=== PATIENT | male | born 1980 | race Caucasian/White ===

== ENCOUNTER → 2018-03-13 14:21 | Outpatient (CLI) | payer OTHER, SELFPAY ==
[2018-03-17 15:26] LABS: Volume Semen 5 (1.0-5.0)
[2018-03-17 15:32] LABS: Liquefaction Semen NO (YES)
[2018-03-17 15:33] LABS: Sperm Count 200 x10^6/mL (20-150); Sperm Motility 40% % Motile
[2018-03-17 15:35] LABS: Sperm Morphology 40 %ABNORM (0-30)
== END ==
PROVIDERS: PCP Family Medicine; Visit Provider Family Medicine
DX: Z31.41 Encounter for fertility testing (principal)
CPT/HCPCS: 89320

== ENCOUNTER → 2020-05-19 14:12 | Outpatient (CLI) | payer OTHER, SELFPAY ==
[2020-05-21 18:39] LABS: COVID19 Sendout Not Detected (Not Detected)
== END ==
PROVIDERS: PCP Family Medicine; Visit Provider Physician Assistant
DX: Z11.59 Encounter for screening for other viral diseases (principal)
CPT/HCPCS: 87635

== ENCOUNTER → 2022-02-21 12:01 | Outpatient (CLI) | payer OTHER, SELFPAY ==
--- NOTE | 2022-02-21 12:02 | DI.RAD.S_ITS ---
PROCEDURE: XR CHEST 2V INDICATIONS: Wheezing, cough, fatigue TECHNIQUE: 2 views of the chest were acquired. COMPARISON: None. FINDINGS: Surgical changes and devices: None. Lungs and pleura: Lungs are clear. No pleural effusions or pneumothorax. Mediastinum: Mediastinal contours are normal. Enlargement of the cardiac silhouette. Bones and chest wall: No suspicious bony abnormalities. Eventration of the right diaphragm. IMPRESSION: Cardiomegaly. Dictated by: Michael Regan M.D. on 02/21/2022 at 12:31 Approved by: Michael Regan M.D. on 02/21/2022 at 12:32
== END ==
PROVIDERS: PCP Family Medicine; Referring Provider Family Medicine; Visit Provider Physician Assistant
DX: I51.7 Cardiomegaly (principal); R05.9 Cough, unspecified; R06.2 Wheezing; R53.83 Other fatigue
CPT/HCPCS: 71046

== ENCOUNTER → 2022-02-22 10:57 | Outpatient (CLI) | payer OTHER, SELFPAY ==
[2022-02-22 11:25] LABS: Add Manual Diff / Slide Review NO; Basophils Absolute Auto 0 /uL (0-100); Basophils Percent Auto 0.7 % (0-2); Eosinophils Absolute Auto 200 /uL (0-450); Eosinophils Percent Auto 3.6 % (2-4); Hematocrit 41.7 % (41-53); Hemoglobin 14.5 g/dL (13.5-17.5); Lymphocytes Absolute Auto 1900 /uL (1100-4500); Lymphocytes Percent Auto 30.1 % (25-40); Mean Corpuscular HGB Conc 34.8 % (30-36); Mean Corpuscular Volume 86.3 fL (80-100); Monocytes Absolute Auto 400 /uL (0-900); Monocytes Percent Auto 6.9 % (3-14); Neutrophils Absolute Auto 3700 /uL (1500-7000); Neutrophils Percent Auto 58.7 % (50-75); Platelet Count 218 X10^3/uL (150-400); Red Blood Cell Count 4.84 X10^6/uL (4.5-5.9); Red Cell Distribution Width 13.2 % (11.6-14.8); White Blood Cell Count 6.4 X10^3/uL (4.5-11.0)
[2022-02-22 12:53] LABS: HEMOLYSIS < 15 (0-50); Iron 129 ug/dL (49-181)
[2022-02-22 12:58] LABS: Alanine Aminotransferase 84 IU/L (<50); Albumin 4.4 g/dL (3.5-5.0); Albumin Globulin Ratio 1.4 (1.0-2.8); Alkaline Phosphatase 123 U/L (38-126); Aspartate Aminotransferase 42 IU/L (17-59); BUN Creatinine Ratio 18.7 (6-22); Bilirubin Total 0.9 mg/dL (0.2-1.3); Blood Urea Nitrogen 14 mg/dL (9-20); Calcium 9.6 mg/dL (8.4-10.2); Carbon Dioxide 28 mmol/L (22-32); Chloride 102 mmol/L (98-107); Cholesterol 179 mg/dL (140-199); Estimated Glomerular Filt Rate > 60 mL/min (>60); Globulin 3.1 g/dL (1.7-4.1); Glucose 113 mg/dL (70-100); HDL Cholesterol 43 mg/dL (40-60); HEMOLYSIS < 15 (0-50); LDL Cholesterol Calculated 61 mg/dL (<100); Potassium 4.2 mmol/L (3.4-5.1); Sodium 137 mmol/L (137-145); Total Protein 7.5 g/dL (6.3-8.2); Triglycerides 374 mg/dL (35-150)
[2022-02-22 13:03] LABS: Percent Iron Saturation 40 % (20-50); Total Iron Binding Capacity 326 ug/dL (261-462); Transferrin 247 mg/dL (206-381)
[2022-02-22 13:23] LABS: TSH w/ Reflex to FT4 1.49 uIU/mL (0.47-4.68)
== END ==
PROVIDERS: PCP Family Medicine; Referring Provider Physician Assistant; Visit Provider Physician Assistant
DX: R53.83 Other fatigue (principal); Z13.220 Encounter for screening for lipoid disorders; Z13.6 Encounter for screening for cardiovascular disorders
CPT/HCPCS: 36415; 80053; 80061; 83540; 83550; 84443; 85025

== ENCOUNTER 2022-03-14 09:11 | Emergency (ER) | payer OTHER, SELFPAY ==
[2022-03-14 09:13] VITALS: BP 142/93; PULSE 99; RESP 15; TEMP 36.8; O2SAT 98; BMI 41.2
--- NOTE | 2022-03-14 09:19 | DI.RAD.S_ITS ---
PROCEDURE: XR RIBS RT MIN 3V W CXR 1V INDICATIONS: rib pain TECHNIQUE: To views of the right ribs were acquired, along with a single view chest. COMPARISON: [facility], , XR CHEST 2V, 02/21/2022, 12:07. FINDINGS: Surgical changes and devices: None. Bones and chest wall: No fractures or dislocations. No suspicious bony lesions. Overlying soft tissues appear unremarkable. Lungs and pleura: No pleural effusions or pneumothorax. Lungs appear clear. Mediastinum: Mediastinal contours appear normal. Heart size is normal. IMPRESSION: No displaced rib fracture. No acute cardiopulmonary disease process. Dictated by: Divine Rider MD, PhD on 03/14/2022 at 9:41 Approved by: Divine Rider MD, PhD on 03/14/2022 at 9:42
--- NOTE | 2022-03-14 09:56 | PC.NURSE ---
Patient reports increase in allergies over the last month or two. Has been seeing PCP for sinus congestion. Patient reports right rib pain and tenderness to RUQ. Patient has no bruising, trauma. Patient has old healed scar from skin graft.
--- NOTE | 2022-03-14 12:10 | ED_ITS ---
HPI - Chest Pain <Soren Bennett PA-C - Last Filed: 03/14/22 12:21> General Chief Complaint: Upper Respiratory Symptoms Stated Complaint: Having lower right rib pain Time Seen by Provider: 03/14/22 11:57 Source: patient Mode of arrival: Ambulatory Limitations: no limitations History of Present Illness HPI narrative: This is a 42-year-old male presents to the emergency department due to 1 month of right rib pain which she suspects is due to excessive coughing and sneezing secondary to allergies. Reports severe right rib pain with ibuprofen providing minimal relief. Denies any shortness of breath, fevers, nausea, vomiting, or any other concerning signs or symptoms. Denies any left arm pain. Related Data Home Medications Medication Instructions Recorded Confirmed cetirizine 10 mg tablet (Zyrtec) 10 mg PO BEDTIME PRN tab 02/21/22 03/04/22 guaifenesin 600 mg tablet, 600 mg PO BID 02/21/22 03/04/22 extended release 12 hr (Mucinex) loratadine 10 mg tablet (Claritin) 10 mg PO .A.M. tab 02/21/22 03/04/22 Previous Rx's Medication Instructions Recorded azelastine 137 mcg (0.1 %) nasal 1 spray INTRANASAL BID #30 ml 02/16/22 spray aerosol Allergies Allergy/AdvReac Type Severity Reaction Status Date / Time No Known Drug Allergies Allergy Verified 03/14/22 09:19 Review of Systems <Soren Bennett PA-C - Last Filed: 03/14/22 12:21> Review of Systems Narrative: GENERAL: Denies chills, fatigue, malaise, fever, sweats. HEENT: Denies sinus pain, ear pain, sore throat, difficulty swallowing, dizziness. RESPIRATORY: Denies dyspnea, cough, wheezing, hemoptysis, sputum. CARDIOVASCULAR: Reports right rib pain. Denies palpitations, orthopnea, edema, GASTROINTESTINAL: Denies nausea, vomiting, abdominal pain, diarrhea, constipation, melena. : Denies dysuria, frequency, incontinence, hematuria, urinary retention. MUSCULOSKELETAL: denies weakness, joint pain, or bony pain SKIN: Denies rash, skin lesions, or other NEUROLOGIC: Denies weakness, headache, numbness, change in speech, confusion, seizures, incoordination. PSYCHIATRIC: No concerning psychosocial issues. 12 point review of systems is negative except for those stated above Patient History <Soren Bennett PA-C - Last Filed: 03/14/22 12:21> Medical History Anxiety Microtia Family History Mother Diabetes mellitus Father Hypertension Social History marital status: number of children: 0 household members: spouse lives independently: Yes caregiver/support person: No housing: house occupational status: employed Smoking Status: Never smoker second hand exposure: Yes alcohol intake: current substance use type: does not use Smoking Status: Never smoker alcohol intake frequency: holidays/special occasions only Substance Use Type: does not use Exam <Soren Bennett PA-C - Last Filed: 03/14/22 12:21> Narrative Exam Narrative: GENERAL: Well-developed patient, in mild distress. HEAD: Atraumatic. Normocephalic. EYES: Pupils equal round and reactive. Extraocular motions intact. No scleral icterus. No injection or drainage. ENT: Nose without bleeding, purulent drainage. Throat without erythema, tonsillar hypertrophy or exudate. Airway patent. NECK: Trachea midline. Non tender CARDIOVASCULAR: Tenderness to palpation to the right anterior rib approximately rib number 8. Regular rate and rhythm without murmurs, gallops, or rubs. RESPIRATORY: Clear to auscultation. Breath sounds equal bilaterally. No wheezes, rales, or rhonchi. GASTROINTESTINAL: Abdomen soft, non-tender, nondistended. EXTREMITIES: No edema or joint tenderness. BACK: Nontender without deformity or crepitance. No flank tenderness. NEURO: AOx3. SKIN: No rash or erythema of visible areas Initial Vital Signs Initial Vital Signs: Vital Signs Temperature 98.3 F 03/14/22 09:13 Pulse Rate 99 H 03/14/22 09:13 Respiratory Rate 15 03/14/22 09:13 Blood Pressure 142/93 H 03/14/22 09:13 Pulse Oximetry 98 03/14/22 09:13 <Meg Jane DO - Last Filed: 03/14/22 20:14> Initial Vital Signs Initial Vital Signs: Vital Signs Temperature 98.3 F 03/14/22 09:13 Pulse Rate 99 H 03/14/22 09:13 Respiratory Rate 15 03/14/22 09:13 Blood Pressure 142/93 H 03/14/22 09:13 Pulse Oximetry 98 03/14/22 09:13 Course <Soren Bennett PA-C - Last Filed: 03/14/22 12:21> Orders Ordered: Discontinued Medications Ketorolac Tromethamine (Ketorolac 30 Mg/Ml Vial) 15 mg IM NOW ONE Stop: 03/14/22 12:14 Last Admin: 03/14/22 12:29 Dose: 15 mg Documented by: ATAYLOR Vital Signs Vital signs: Vital Signs - 8 hr 03/14/22 12:38 Pulse Rate 94 H Respiratory Rate 18 Blood Pressure 153/85 H Pulse Oximetry 98 <Meg Jane DO - Last Filed: 03/14/22 20:14> Orders Ordered: Discontinued Medications Ketorolac Tromethamine (Ketorolac 30 Mg/Ml Vial) 15 mg IM NOW ONE Stop: 03/14/22 12:14 Last Admin: 03/14/22 12:29 Dose: 15 mg Documented by: ATAYLOR Vital Signs Vital signs: Vital Signs - 8 hr 03/14/22 12:38 Pulse Rate 94 H Respiratory Rate 18 Blood Pressure 153/85 H Pulse Oximetry 98 MDM - Chest Pain <Soren Bennett PA-C - Last Filed: 03/14/22 12:21> Imaging Data Chest x-ray: Radiologist's Impression: [address] [address] XRay Report Signed Patient: Michael Monzon MR#: [id number] : 1980 Acct:[id number] Age/Sex: 42 / M Date of Service: 03/14/22 Loc: ED Accession Number: [id number] ?? Procedure: XR ribs RT min 3V w CXR1V Ordering Provider: Meg Jane D.O. PROCEDURE:? XR RIBS RT MIN 3V W CXR 1V ? INDICATIONS:? rib pain ? TECHNIQUE:? To views of the right ribs were acquired, along with a single view chest.? ? COMPARISON:? [facility], CR, XR CHEST 2V, 02/21/2022, 12:07. ? FINDINGS:? ? Surgical changes and devices:? None.? ? Bones and chest wall:? No fractures or dislocations.? No suspicious bony lesions.? Overlying soft tissues appear unremarkable.? ? Lungs and pleura:? No pleural effusions or pneumothorax.? Lungs appear clear.? ? Mediastinum:? Mediastinal contours appear normal.? Heart size is normal.? ? IMPRESSION:? No displaced rib fracture. No acute cardiopulmonary disease process. ? ? Dictated by: Divine Rider MD, PhD on 03/14/2022 at 9:41 ? ? Approved by: Divine Rider MD, PhD on 03/14/2022 at 9:42 ? MDM Narrative Medical decision making narrative: 42-year-old male presents to the emergency department due to acute onset right rib pain. Patient was very tender on palpation concerning for possible rib fracture. X-rays ordered which stated ?no displaced? rib fracture. Will treat for possibly nondisplaced rib fracture on the right with conservative measures. Patient denies for any nausea, left arm pain, heavy pressure-like chest pain concerning for ACS. Patient did report a concerning history consistent with a possible rib fracture. Chest x-ray showed no other abnormal lung findings. Discharge Plan Departure Patient Disposition: Home Clinical Impression: Pain in rib Instructions: DI for Rib Fracture, DI for Rib Contusion Activity Restrictions/Additional Instructions: Thank you for coming to the [facility] Emergency Department today. There were no obvious rib fractures on chest x-ray but we would still like you to be careful with any physical activity until your rib has time to heal. Please use ibuprofen as recommended for the pain. The injection given to you of Toradol should help with the pain as well. Chest x-ray did not show any other abnormal lung injury. I suspect you have either had a very small fracture or pulled a muscle in your rib area due to the excessive sneezing and coughing from allergies. I hope you feel better soon. Prescriptions: No Action azelastine 137 mcg (0.1 %) aerosol,spray 1 spray intranasal BID Qty: 30 1RF Rx Instructions: administer into each nostril loratadine [Claritin] 10 mg tablet 10 mg PO .A.M. 0RF cetirizine [Zyrtec] 10 mg tablet 10 mg PO BEDTIME PRN0RF guaifenesin [Mucinex] 600 mg tablet extended release 12hr 600 mg PO BID 0RF Referrals: Brianda Cleveland MD [Primary Care Provider] - Stand Alone Forms: Work Release Note Visit Report Forms: Patient Portal/API <Meg Jane DO - Last Filed: 03/14/22 20:14> Cosign ED Attending Sudeepature Attestation: I was immediately available in the department for consultation. Documentation has been reviewed.
[2022-03-14] MEDS: KETOROLAC 30 MG/ML VIAL 15 MG IM (12:29)
[2022-03-14 12:38] VITALS: BP 153/85; PULSE 94; RESP 18; O2SAT 98
== END 2022-03-14 12:41 | disposition home or self-care (01) ==
PROVIDERS: Emergency Provider Physician Assistant Medical; PCP Family Medicine
DX: R07.81 Pleurodynia (principal)
CPT/HCPCS: 71101; 96372; 99283; J1885

== ENCOUNTER 2022-06-17 14:22 | Emergency (ER) | payer OTHER, SELFPAY ==
[2022-06-17 14:39] VITALS: BP 138/78; PULSE 78; RESP 20; TEMP 36.6; O2SAT 99
--- NOTE | 2022-06-17 14:49 | ED_ITS ---
HPI - URI/Sore Throat General Chief Complaint: Upper Respiratory Symptoms Stated Complaint: peritonsillar abscess worried about swallowing it Time Seen by Provider: 06/17/22 14:41 Source: patient Mode of arrival: Ambulatory History of Present Illness HPI Narrative: Michael is a 42-year-old man with throat infection. He was seen earlier today in the walk-in clinic for swelling in his throat and was diagnosed with peritonsillar abscess and told to return to the emergency department if the swelling is getting worse. He came in today because he feels that the swelling is worse and he is gagging on his uvula. No vomiting. He can swallow. His airway is not compromised. Denies any other problems today. Related Data Home Medications Medication Instructions Recorded Confirmed cetirizine 10 mg tablet (Zyrtec) 10 mg PO BEDTIME PRN 02/21/22 05/28/22 ibuprofen 200 mg tablet 400 mg PO Q4H 03/21/22 05/28/22 omeprazole 20 mg capsule,delayed 20 mg PO DAILY 05/28/22 05/28/22 release Previous Rx's Medication Instructions Recorded lisinopril 10 mg tablet 10 mg PO DAILY #60 tabs 04/24/22 Dexamethasone 4 mg PO DAILY 3 days 06/17/22 Allergies Allergy/AdvReac Type Severity Reaction Status Date / Time No Known Drug Allergies Allergy Verified 05/28/22 11:34 Review of Systems Review of Systems Narrative: Complete review of systems is otherwise negative. Patient History Medical History (Updated 06/17/22 @ 14:49 by Jorge L Paul MD) Anxiety Microtia Obstructive sleep apnea (adult) (pediatric) Family History Mother Diabetes mellitus Father Hypertension Social History marital status: number of children: 0 household members: spouse lives independently: Yes caregiver/support person: No housing: house occupational status: employed Smoking Status: Never smoker second hand exposure: Yes alcohol intake: current substance use type: does not use Smoking Status: Never smoker alcohol intake frequency: holidays/special occasions only Substance Use Type: does not use Exam Narrative Exam Narrative: GENERAL: Alert, cooperative and in no distress. HEAD: Atraumatic. Normocephalic. EYES: Sclera are clear without icterus. Extraocular movements are full. ENT: No rhinorrhea. Oropharynx is moist. Mouth exam is benign. Uvula is swollen. The posterior pharynx is widely patent. The tonsillar pillars are erythematous with a little bit of exudate. There is no midline shift of the uvula. There is no obvious abscess. NECK: Supple. Full range of motion. No adenopathy EXTREMITIES: No edema, full range of motion. No obvious trauma. NEURO: Nonfocal examination, normal speech, normal gait. SKIN: No rash or erythema of visible areas PSYCH: Normally oriented. Normal range of affect. Appropriate behavior Initial Vital Signs Initial Vital Signs: Vital Signs Temperature 97.9 F 06/17/22 14:39 Pulse Rate 78 06/17/22 14:39 Respiratory Rate 20 06/17/22 14:39 Blood Pressure 138/78 06/17/22 14:39 Pulse Oximetry 99 06/17/22 14:39 Oxygen Delivery Method 06/17/22 14:39 Course Vital Signs Vital signs: Vital Signs - 8 hr 06/17/22 14:39 Temperature 97.9 F Pulse Rate 78 Respiratory Rate 20 Blood Pressure 138/78 Pulse Oximetry 99 Oxygen Delivery Method Room Air MDM - URI/Sore Throat MDM Narrative Medical decision making narrative: Patient seems frustrated by the fact that he continues to have gagging with a swollen uvula. I tried to reassure him as best I could that no immediately dangerous condition is present and that the swelling will resolve with the dexamethasone over the next 1 or 2 days. There is no overt peritonsillar abscess to my eye as diagnosed earlier today. I think continuing dexamethasone and Augmentin should certainly be sufficient for any bacterial component or any significant swelling. Discharge Plan Departure Patient Disposition: Home Clinical Impression: Pharyngitis, Uvulitis Activity Restrictions/Additional Instructions: Take all of the medications previously prescribed including the Augmentin antibiotic. Take 4 mg dexamethasone daily for the next 3 days. These medicines will help decrease the swelling as fast as anything. There is nothing really to be done about the gagging sensation you have because the uvula is swollen. The swelling should decrease dramatically over the coming 24-48 hours. If you can not swallow or have trouble breathing, you should return to the emergency dep artment. Prescriptions: New Dexamethasone 4 mg tablet 4 mg PO DAILY 3 Days 0RF No Action cetirizine [Zyrtec] 10 mg tablet 10 mg PO BEDTIME PRN omeprazole 20 mg capsule,delayed release(DR/EC) 20 mg PO DAILY lisinopril 10 mg tablet 10 mg PO DAILY Qty: 60 1RF ibuprofen 200 mg tablet 400 mg PO Q4H Referrals: Brianda Cleveland MD [Primary Care Provider] -
== END 2022-06-17 14:54 | disposition home or self-care (01) ==
PROVIDERS: Emergency Provider Family Medicine Addiction Medicine; PCP Family Medicine
DX: K12.2 Cellulitis and abscess of mouth (principal); J02.9 Acute pharyngitis, unspecified
CPT/HCPCS: 99281

== ENCOUNTER → 2022-07-03 15:45 | Outpatient (CLI) | payer OTHER, SELFPAY ==
[2022-07-03 16:38] LABS: Hemoglobin A1C% w Est Avg Glu 8.4 % (4.0-6.0)
== END ==
PROVIDERS: PCP Family Medicine; Referring Provider Physician Assistant; Visit Provider Physician Assistant
DX: E78.1 Pure hyperglyceridemia (principal); R35.0 Frequency of micturition; R35.1 Nocturia; R73.01 Impaired fasting glucose
CPT/HCPCS: 36415; 83036

== ENCOUNTER → 2022-08-10 11:47 | Outpatient (CLI) | payer OTHER, SELFPAY ==
[2022-08-10 13:47] LABS: BUN Creatinine Ratio 13.2 (6-22); Blood Urea Nitrogen 9 mg/dL (9-20); Calcium 8.8 mg/dL (8.4-10.2); Carbon Dioxide 25 mmol/L (22-32); Chloride 100 mmol/L (98-107); Estimated Glomerular Filt Rate > 60 mL/min (>60); Glucose 201 mg/dL (70-100); HEMOLYSIS < 15 (0-50); Potassium 3.8 mmol/L (3.4-5.1); Sodium 135 mmol/L (137-145)
[2022-08-10 17:29] LABS: Creatinine Urine Random 108.7 mg/dL
[2022-08-10 17:34] LABS: Microalbumin Urine Random < 0.6 mg/dL (0-1.6)
== END ==
PROVIDERS: Physician Assistant; PCP Family Medicine; Referring Provider Family Medicine; Visit Provider Family Medicine
DX: E11.65 Type 2 diabetes mellitus with hyperglycemia (principal); I10 Essential (primary) hypertension
CPT/HCPCS: 36415; 80048; 82043; 82570; 83036

== ENCOUNTER → 2022-08-28 13:47 | Outpatient (CLI) | payer OTHER, SELFPAY ==
--- NOTE | 2022-08-30 08:58 | DIAB.MNT ---
Initial Diabetes Medical Nutrition Therapy Assessment Name: Michael Monzon Date: 08/28/22 Time: 2-3p Dx: Type II Diabetes Provider: Megha Michael presents for initial visit regarding T2DM diagnosis. Denies FH of DM. Reports 60# weight gain over the last 5 years since getting . Attributes this to stress. Stress is primarily from his 's medical state. States she gets dizzy easily and needs his help frequently. Stress management currently includes video games, leggos, wood working States his also has DM and completed DM ed with previous [facility]. He attended this education as well. H/o trying keto but found this to be expensive. Endorses a modified keto, though eating frequency appears to be 1-2x per day with CHO. States he feels hunger at work, but he pushes though it due to money. Endorses some financial concerns with food access. States he figueredo snot qualify for SNAP due to his income. Has not used food pantries as a resource. Reports reduced bread and pasta intake. Also switched to low carb ice cream. He is currently not working due to managing some health concerns with provider (was falling asleep when driving), which has reportedly improved. Plans to restart work this Friday. 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 Movement with work. Would like to go for a walk with the dogs. Feels may be a barrier. Has stationary bike. Self-Monitoring Blood Glucose: None for review today. Reports FBG often around 150mg/dL. Might be in 200s some mornings. Has not checked since February. Diabetes Medications: 1000mg Metformin HS 5mg Glipizide ER Pertinent Labs: hgA1c: 8% 07/2022, down from 8.4% 06/2022 Past Medical History: (Last Updated 07/03/22 @ 15:39 by Karina Figueredo PA-C) Anxiety Microtia Obstructive sleep apnea (adult) (pediatric) Urinary frequency Nutrition Rx: Carbohydrates: Meal:45g Snack:15-30g Nutrition Diagnosis: - Excessive CHO intake r/t long periods of fasting resulting in larger portions and sugar sweetened beverages at work aeb diet recall - Limited access to food r/t financial concerns aeb pt report Intervention: This participant was very receptive. Provided appropriate educational handouts. Discussed the following topics: Completed intake assessment. Discussed barriers to care. Importance of self-monitoring, how often, and when to check. Suggested checking at different times to evaluate meals Stress management and impact on BG and weight. Plate Method, impact of macronutrients on blood sugar, meal timing, carbohydrate counting, pairing macronutrients and spreading out carbohydrates for better blood glucose management Recommended servings for carbohydrates at meals and snacks Brainstormed ways to reduce carb intake and increase veggie intake Role of physical activity and recommendations Created SMART goals for patient self-care and success. Goals: If eating take out, make a salad too Try [employer] for food access Check BG 1-2x per day and bring to next visit Walk 2-3x per week Follow-up: JAYLEN JORGE follow-up in 2-3 weeks. Next visit will discuss DM pathophysiology and nutrition more in depth. Halima Gomes RDN, LUISITO Certified Diabetes Care and Human Resources Project Coordinator P: [phone] Thank you for this referral
== END ==
PROVIDERS: PCP Family Medicine; Referring Provider Family Medicine; Visit Provider Family Medicine
DX: E11.9 Type 2 diabetes mellitus without complications (principal); Z79.84 Long term (current) use of oral hypoglycemic drugs; Z71.3 Dietary counseling and surveillance
CPT/HCPCS: 97802

== ENCOUNTER → 2022-09-19 17:39 | Outpatient (CLI) | payer OTHER, SELFPAY ==
[2022-09-19 18:19] LABS: BUN Creatinine Ratio 22.1 (6-22); Blood Urea Nitrogen 15 mg/dL (9-20); Calcium 9.6 mg/dL (8.4-10.2); Carbon Dioxide 25 mmol/L (22-32); Chloride 103 mmol/L (98-107); Estimated Glomerular Filt Rate > 60 mL/min (>60); Glucose 115 mg/dL (70-100); HEMOLYSIS < 15 (0-50); Sodium 139 mmol/L (137-145)
== END ==
PROVIDERS: PCP Family Medicine; Referring Provider Physician Assistant; Visit Provider Physician Assistant
DX: E11.65 Type 2 diabetes mellitus with hyperglycemia (principal)
CPT/HCPCS: 36415; 80048; 83036

== ENCOUNTER → 2022-09-24 14:27 | Outpatient (CLI) | payer OTHER, SELFPAY ==
--- NOTE | 2022-10-03 15:56 | DIAB.MNTFU ---
Follow-up Diabetes Medical Nutrition Therapy Assessment Name: Michael Monzon Date: 09/24/22 Time: 3-345p Dx: Type II Diabetes Michael presents for follow-up visit regarding T2DM. Reports reducing snacks such as chips or popcorn. Trying to make more healthful choices, ie PB toast. Has reduced pasta portions to 1c at meals. Aiming for more frequent small meals. Limited veggies in the day. Meal times inconsistent day to day. May eat 2 or 3x per day. No previous ed on DM pathophysiology Diet Recall: 3-4p: coffee black. 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 States work schedule and home chores are a barrier to exercise. Self-Monitoring Blood Glucose: Limited data. recent FBG improved from August. Date Pre Post Pre Post Pre Post 08/29 210 09/03 227 171 09/13 95 109 09/19 125 Diabetes Medications: 1000mg Metformin HS 5mg Glipizide ER Pertinent Labs: No change in recent HgA1c. Predict improved next visit with hopefully lifestyle changes that are currently being implemented. hgA1c: 8% 09/2022 8% 07/2022 8.4% 06/2022 Past Medical History: (Last Reviewed 09/25/22 @ 13:10 by Chuy Turner MD) Anxiety Microtia Obstructive sleep apnea (adult) (pediatric) Urinary frequency Nutrition Rx: Carbohydrates: Meal:45g Snack:15-30g Nutrition Diagnosis: - Excessive CHO intake r/t long periods of fasting resulting in larger portions and sugar sweetened beverages at work aeb diet recall- improved/in progress - Limited access to food r/t financial concerns aeb pt report - Physical inactivity r/t no program in place currently due to work schedule, chores, and stage of change aeb pt report Intervention: This participant was very receptive. Provided appropriate educational handouts. Discussed the following topics: Blood sugar review and trends. DM Pathophysiology hgA1c explanation and goals Plate Method, impact of macronutrients on blood sugar, meal timing, carbohydrate counting, pairing macronutrients and spreading out carbohydrates for better blood glucose management Eating out and grocery shopping tips Meal planning and snack options Created SMART goals for patient self-care and success. Goals: If eating take out, make a salad too- in progress Try [employer] for food access- not met Check BG 1-2x per day and bring to next visit- in progress Walk 2-3x per week - not met Make a salad with dinner- new Add 1 fruit per day at work- new Eating schedule: 3a, 6a, 11a-12p, 2a- new Follow-up: JAYLEN JORGE follow-up in 3-4 weeks Halima Gomes RDN, LUISITO Certified Diabetes Care and Data Entry Machine Operator P: [phone] Thank you for this referral
== END ==
PROVIDERS: PCP Family Medicine; Referring Provider Family Medicine; Visit Provider Family Medicine
DX: E11.9 Type 2 diabetes mellitus without complications (principal); Z71.3 Dietary counseling and surveillance; Z79.84 Long term (current) use of oral hypoglycemic drugs
CPT/HCPCS: 97803

== ENCOUNTER → 2022-10-22 12:52 | Outpatient (CLI) | payer OTHER, SELFPAY ==
--- NOTE | 2022-10-30 14:49 | DIAB.MNTFU ---
Follow-up Diabetes Medical Nutrition Therapy Assessment Name: Michael Monzon Date: 10/22/22 Time: 110-205p Dx: Type II Diabetes Michael presents for follow-up. States he has been trying to incorporate salads daily. Also reported brining an apple for his work break, as discussed last visit. Portions at meals in goal. Continues to have stress with marriage. Seems what he spends time doing is dictated by his primarily. he admits that he allows her to determine what he does in a day. Does endorse feelings of frustration in not being able to go for a walk when he wants to with the dogs. Anthropometrics: Ht: 64 Wt: 245.5# (previous visit-- no new wt today) Weight history: Reports 180# 5 years ago Physical Activity: Walks at work. Barriers to walking at home discussed above. Has a stationary bike, parents have a treadmill, h/o gym membership. Self-Monitoring Blood Glucose: Checking 4-5x per week FBG. No log book today. Reports FBG 90-96 mg/dL, in range, much improved from elevations last visit. Diabetes Medications: 1000mg Metformin HS 5mg Glipizide ER Pertinent Labs: hgA1c: 8% 09/2022 8% 07/2022 8.4% 06/2022 Past Medical History: (Last Reviewed 09/25/22 @ 13:10 by Chuy Turner MD) Anxiety Microtia Obstructive sleep apnea (adult) (pediatric) Urinary frequency Nutrition Rx: Carbohydrates: Meal:45g Snack:15-30g Nutrition Diagnosis: - Excessive CHO intake r/t long periods of fasting resulting in larger portions and sugar sweetened beverages at work aeb diet recall- improved - Limited access to food r/t financial concerns aeb pt report- no change-- has discussed and provided resources - Physical inactivity r/t no program in place currently due to work schedule, chores, and stage of change aeb pt report - in progress Intervention: This participant was very receptive. Provided appropriate educational handouts. Discussed the following topics: BG improvements Meal timing changes Stress management and potential for therapy How support network can impact DM and overall health Physical activity plan Created SMART goals for patient self-care and success. Goals: Make a salad with dinner- met Add 1 fruit per day at work- met Eating schedule: 3a, 6a, 11a-12p, 2a- improved Check some BG after meals- new Consider how to incorporate more activity- new Follow-up: JAYLEN JORGE follow-up in 3-4 weeks Halima Gomes RDN, LUISITO Certified Diabetes Care and Security Alarm Installer P: [phone] Thank you for this referral
== END ==
PROVIDERS: PCP Family Medicine; Referring Provider Family Medicine; Visit Provider Family Medicine
DX: E11.9 Type 2 diabetes mellitus without complications (principal); Z79.84 Long term (current) use of oral hypoglycemic drugs; Z71.3 Dietary counseling and surveillance
CPT/HCPCS: 97803

== ENCOUNTER → 2022-11-13 14:13 | Outpatient (CLI) | payer OTHER, SELFPAY ==
[2022-11-13 14:36] LABS: Hemoglobin A1C% w Est Avg Glu 6.3 % (4.0-6.0)
== END ==
PROVIDERS: PCP Family Medicine; Referring Provider Physician Assistant; Visit Provider Physician Assistant
DX: E11.65 Type 2 diabetes mellitus with hyperglycemia (principal); I10 Essential (primary) hypertension
CPT/HCPCS: 36415; 83036

== ENCOUNTER → 2022-11-27 13:59 | Outpatient (CLI) | payer OTHER, SELFPAY ==
[2022-11-27 14:46] LABS: Hemoglobin A1C% w Est Avg Glu 5.9 % (4.0-6.0)
[2022-11-27 14:55] LABS: Cholesterol 142 mg/dL (140-199); HDL Cholesterol 45 mg/dL (40-60); LDL Cholesterol Calculated 64 mg/dL (<100); Triglycerides 166 mg/dL (35-150)
[2022-11-27 17:30] LABS: Creatinine Urine Random 150.8 mg/dL
[2022-11-27 17:35] LABS: Microalbumi Creatinin Ratio Ur 4.6 ug/mg CR (<30); Microalbumin Urine Random 0.7 mg/dL (0-1.6)
== END ==
PROVIDERS: PCP Family Medicine; Referring Provider Physician Assistant; Visit Provider Physician Assistant
DX: E78.1 Pure hyperglyceridemia (principal); E11.9 Type 2 diabetes mellitus without complications; E11.65 Type 2 diabetes mellitus with hyperglycemia; I10 Essential (primary) hypertension
CPT/HCPCS: 36415; 80061; 82043; 82570; 83036

== ENCOUNTER → 2022-12-03 08:46 | Outpatient (CLI) | payer OTHER, SELFPAY ==
--- NOTE | 2022-12-03 11:36 | DIAB.MNTFU ---
Follow-up Diabetes Medical Nutrition Therapy Assessment Name: Michael Monzon Date: 12/03/22 Time: 095-818s Dx: Type II Diabetes Michael presents today for follow-up DM visit. Much improved HgA1c at 5.9%! States he feels his current diet changes are sustainable. Continues with reduced carb portions at meal and bringing snacks to work. Stopped buying apples recently due to increase cost. Replaced with low carb yogurt and 1/8c granola. Continues with salads most days at dinner. Per diet recall, endorses very little water intake at home, essentially none. Endorses mostly milk and apple juice intake at home. At work drinks diet beverages and unsweetened black tea. Aiming for half plate veggies. Feels frustrated with as she seems to not be making similar lifestyle changes, and from his perspective could benefit. continued difficulty with daytime sleepiness. Seeing sleep center in [place] this week. Anthropometrics: Ht: 64 Wt: 245.5# (previous visit-- no new wt today or from last PCP visit) Weight history: Reports 180# 5 years ago Physical Activity: Walks at work. Has stationary bike but not in use. Feels he would be able to be more active if was active as well. Reports sedentary time with video games on days off. Open to incorporating bike on those days Self-Monitoring Blood Glucose: Checking FBG ( in the 80s) and some after meals (120-130mg/dl). All in goal reported. No meter or log book today. Diabetes Medications: 1000mg Metformin HS 5mg Glipizide ER Pertinent Labs: hgA1c: 5.9 11/2022 6.3% 11/2022 8% 09/2022 8% 07/2022 8.4% 06/2022 Past Medical History: (Last Updated 11/20/22 @ 14:24 by Karina Figueredo PA-C) Anxiety Microtia Obstructive sleep apnea (adult) (pediatric) Type 2 diabetes mellitus with hyperglycemia Urinary frequency Nutrition Rx: Carbohydrates: Meal:45g Snack:15-30g Nutrition Diagnosis: - Physical inactivity r/t no program in place currently due to work schedule, chores, and stage of change aeb pt report - in progress - Predicted excessive CHO intake r/t beverage choices and limited water aeb diet recall Intervention: This participant was very receptive. Provided appropriate educational handouts. Discussed the following topics: Blood sugar review and trends. Much improved HgA1c Sustainability of changes Beverage choices and importance of water intake for hydration and BG management Physical activity plan and barriers Fruit options for work that might be more affordable Created SMART goals for patient self-care and success. Goals: Check some BG after meals- met Consider how to incorporate more activity- in progress Check prices of other fruits discussed- new Try stationary bike on days off while playing video games- new Aim for 2-3 x12oz water at home min- new Follow-up: JAYLEN JORGE follow-up in 6-8 weeks. Will evaluate for 6 month follow-up at next visit. Overall, Michael seems to be doing very well managing his DM. Halima Gomes, JAYLEN, CDCES Certified Diabetes Care and [employer] Internship P: [phone] Thank you for this referral
== END ==
PROVIDERS: PCP Family Medicine; Referring Provider Family Medicine; Visit Provider Family Medicine
DX: E11.9 Type 2 diabetes mellitus without complications (principal); Z79.84 Long term (current) use of oral hypoglycemic drugs; Z71.3 Dietary counseling and surveillance
CPT/HCPCS: 97803

== ENCOUNTER → 2023-01-21 12:48 | Outpatient (CLI) | payer OTHER, SELFPAY ==
--- NOTE | 2023-01-30 09:23 | DIAB.FU ---
Follow-up Diabetes Education Assessment Name: Michael Monzon Date: 01/21/23 Time: 110-150p Dx: Type II Diabetes Provider: Megha Michael presents today for follow-up DM visit. Reports continuing nutrition changes, keeping half plate veggies and limiting CHO to about 1c. Has increased water intake since last visit. Limited fruit in diet. Had sleep center visit in [place]. Reports he may have uncontrolled SALLY vs narcolepsy. States overall things with his have been better. She is being more active. They have a new dog. No eye dr for 2-2.5 years. Last dental in 1999, finances even with insurance is the main barrier. States he thinks he has a some work that needs to be done on teeth. Not getting regular check-ups/cleanings. Anthropometrics: Ht: 64 Wt: 226# (yesterday at sleep center) Physical Activity: No program. has reported that being more active may get him to be more active. Current stage of change barrier. Self-Monitoring Blood Glucose: No log book for review, however FBG are all under 100mg/dl, in goal. No pc readings recently. Diabetes Medications: 1000mg Metformin HS 5mg Glipizide ER Pertinent Labs: hgA1c: 5.9 11/2022 6.3% 11/2022 8% 09/2022 8% 07/2022 8.4% 06/2022 Past Medical History: (Last Updated 11/20/22 @ 14:24 by Karina Figueredo PA-C) Anxiety Microtia Obstructive sleep apnea (adult) (pediatric) Type 2 diabetes mellitus with hyperglycemia Urinary frequency Intervention: This participant was very receptive. Provided appropriate educational handouts. Discussed the following topics: Recent blood sugar results and trends Review of general nutrition recommendations and current intake Physical activity plan and strategies Prevention of complications: dental and eye appointments, Created SMART goals for patient self-care and success. Goals: Check prices of other fruits discussed- met Try stationary bike on days off while playing video games- not met Aim for 2-3 x12oz water at home min- met walk dogs 1x per week- new Aim for 1-2 servings fruit per day with cheese- new Call eye dr- new Consider dental check-up and cleanings as affordable- new Follow-up: JAYLEN JORGE follow-up in October 2022. Overall, Michael is managing his DM well. BG are in goal and nutrition changes seem sustainable for him. Halima Gomes RDN, [facility] Certified Diabetes Care and Security Compliance Engineer P: [phone] Thank you for this referral
== END ==
PROVIDERS: PCP Family Medicine; Referring Provider Family Medicine; Visit Provider Family Medicine
DX: E11.9 Type 2 diabetes mellitus without complications (principal); Z79.84 Long term (current) use of oral hypoglycemic drugs; Z71.3 Dietary counseling and surveillance
CPT/HCPCS: G0108

== ENCOUNTER → 2023-05-21 10:13 | Outpatient (CLI) | payer OTHER, SELFPAY ==
--- NOTE | 2023-05-21 10:14 | DI.US.S_ITS ---
PROCEDURE: US RENAL COMPLETE INDICATIONS: RIGHT BACK PAIN AND GROSS HEMATURIA TECHNIQUE: Real-time scanning was performed of the kidneys and bladder, with image documentation. COMPARISON: None. FINDINGS: Kidneys: Kidneys are normal in size. Right kidney measures 11.0 cm long; left kidney measures 11.5 cm long. Right renal cortical thickness is 2.0 cm; left renal cortical thickness is 2.3 cm. Renal cortical echotexture is normal. No hydronephrosis or nephrolithiasis. No suspicious solid mass lesions. Bladder: Pre-void bladder volume is 98 mL. Post-void residual is 18 mL. Pre-void images demonstrate no intraluminal masses or stones. Urinary bladder wall thickening is seen measures up to 5.7 mm in thickness. On pre-void images, bilateral ureteral jets are noted with color Doppler interrogation. (Of note, ureteral jets may not be detectable in up to 25% of cases due to insufficient differences in specific gravity between ureteral and bladder urine). Miscellaneous: No free pelvic fluid. Prominent size of liver measures 18.2 cm in length is seen. A unix systems administrator liver parenchymal echotexture is also noted. IMPRESSION: 1. Normal appearing bilateral kidneys. 2. Diffuse bladder wall thickening, no discrete bladder wall mass. Small amount of postvoid residual. 3. Hepatomegaly and hepatic steatosis. Dictated by: Zeyad Sanchez M.D. on 05/21/2023 at 15:30 Approved by: Zeyad Sanchez M.D. on 05/21/2023 at 15:32
== END ==
PROVIDERS: PCP Family Medicine; Referring Provider Physician Assistant; Visit Provider Physician Assistant
DX: K76.0 Fatty (change of) liver, not elsewhere classified (principal); R31.0 Gross hematuria; R10.9 Unspecified abdominal pain; R35.0 Frequency of micturition
CPT/HCPCS: 76770

== ENCOUNTER → 2023-05-28 07:45 | Outpatient (CLI) | payer OTHER, SELFPAY | PROVIDERS: PCP Family Medicine; Referring Provider Family Medicine; Visit Provider Family Medicine | DX: R00.2 Palpitations (principal) | CPT/HCPCS: 93246 ==

== ENCOUNTER → 2023-09-11 13:29 | Outpatient (CLI) | payer OTHER, SELFPAY ==
[2023-09-11 14:33] LABS: Alanine Aminotransferase 16 IU/L (<50); Albumin 4.7 g/dL (3.5-5.0); Albumin Globulin Ratio 1.4 (1.0-2.8); Alkaline Phosphatase 52 U/L (38-126); Aspartate Aminotransferase 20 IU/L (17-59); BUN Creatinine Ratio 17.5 (6-22); Bilirubin Total 0.5 mg/dL (0.2-1.3); Blood Urea Nitrogen 11 mg/dL (9-20); Calcium 10.3 mg/dL (8.4-10.2); Carbon Dioxide 26 mmol/L (22-32); Chloride 102 mmol/L (98-107); Cholesterol 174 mg/dL (140-199); Estimated Glomerular Filt Rate > 60 mL/min (>60); Globulin 3.3 g/dL (1.7-4.1); Glucose 63 mg/dL (70-100); HDL Cholesterol 62 mg/dL (40-60); HEMOLYSIS < 15 (0-50); LDL Cholesterol Calculated 89 mg/dL (<100); Sodium 139 mmol/L (137-145); Triglycerides 116 mg/dL (35-150)
[2023-09-11 15:37] LABS: Hemoglobin A1C% w Est Avg Glu 6.2 % (4.0-6.0)
[2023-09-11 22:26] LABS: Creatinine Urine Random 230.2 mg/dL
[2023-09-11 22:38] LABS: Microalbumi Creatinin Ratio Ur 7.8 ug/mg CR (<30); Microalbumin Urine Random 1.8 mg/dL (0-1.6)
== END ==
PROVIDERS: PCP Family Medicine; Referring Provider Family Medicine; Visit Provider Family Medicine
DX: E11.9 Type 2 diabetes mellitus without complications (principal); E78.1 Pure hyperglyceridemia; I10 Essential (primary) hypertension
CPT/HCPCS: 36415; 80053; 80061; 82043; 82570; 83036

== ENCOUNTER → 2023-10-22 11:05 | Outpatient (CLI) | payer OTHER, SELFPAY ==
[2023-10-22 12:02] LABS: Hemoglobin A1C% w Est Avg Glu 6.1 % (4.0-6.0)
[2023-10-22 12:07] LABS: Cholesterol 133 mg/dL (140-199); HDL Cholesterol 46 mg/dL (40-60); LDL Cholesterol Calculated 55 mg/dL (<100); Triglycerides 162 mg/dL (35-150)
== END ==
PROVIDERS: PCP Family Medicine; Referring Provider Family Medicine; Visit Provider Family Medicine
DX: E11.9 Type 2 diabetes mellitus without complications (principal)
CPT/HCPCS: 36415; 80061; 83036

== ENCOUNTER → 2023-12-16 14:51 | Outpatient (CLI) | payer OTHER, SELFPAY ==
--- NOTE | 2023-12-16 14:52 | DI.NM.S_ITS ---
PROCEDURE: NM EXERCISE TREADMILL NON NUC COMPARISON: None INDICATIONS: Chest Pain FINDINGS: Rest ECG sinus rhythm. Hammad protocol 7:31, maximum heart rate 165 bpm (92% peak predicted), maximum blood pressure 182/88, 10.1 METS, DEVEN +35%. Exercise ECG sinus tachycardia, no ST segment changes or arrhythmia. No reports of exercise-induced chest pain. IMPRESSION: Low risk study. No evidence of exercise-induced ischemia or arrhythmia. Normal hemodynamic response. Reduced exercise capacity. Dictated by: Eleonora Long D.O. on 12/17/2023 at 16:23 Approved by: Eleonora Long D.O. on 12/17/2023 at 16:25
== END ==
PROVIDERS: PCP Family Medicine; Referring Provider Family Medicine; Visit Provider Family Medicine
DX: R07.9 Chest pain, unspecified (principal)
CPT/HCPCS: 93017

== ENCOUNTER → 2024-10-07 13:59 | Outpatient (CLI) | payer OTHER, SELFPAY ==
[2024-10-07 14:55] LABS: Hemoglobin A1C% w Est Avg Glu 11.3 % (4.0-6.0)
== END ==
PROVIDERS: PCP Family Medicine; Referring Provider Family Medicine; Visit Provider Family Medicine
DX: E11.9 Type 2 diabetes mellitus without complications (principal)
CPT/HCPCS: 83036

== ENCOUNTER → 2025-08-10 15:52 | Outpatient (CLI) | payer OTHER, SELFPAY ==
[2025-08-10 17:57] LABS: Hemoglobin A1C% w Est Avg Glu 5.7 % (4.0-6.0)
[2025-08-10 18:13] LABS: Alanine Aminotransferase 57 IU/L (<50); Albumin 4.3 g/dL (3.5-5.0); Albumin Globulin Ratio 1.5 (1.0-2.8); Alkaline Phosphatase 74 U/L (38-126); Blood Urea Nitrogen 14 mg/dL (9-20); Calcium 9.3 mg/dL (8.4-10.2); Carbon Dioxide 25 mmol/L (22-32); Chloride 103 mmol/L (98-107); Cholesterol 104 mg/dL (140-199); Estimated Glomerular Filt Rate > 60 mL/min (>60); Globulin 2.9 g/dL (1.7-4.1); Glucose 78 mg/dL (70-99); HDL Cholesterol 52 mg/dL (40-60); HEMOLYSIS < 15 (0-50); Potassium 4.1 mmol/L (3.4-5.1); Sodium 137 mmol/L (137-145); Total Protein 7.2 g/dL (6.3-8.2); Triglycerides 153 mg/dL (35-150)
[2025-08-11 13:55] LABS: Microalbumi Creatinin Ratio Ur 7.0 ug/mg CR (<30)
== END ==
PROVIDERS: PCP Family Medicine; Referring Provider Family Medicine; Visit Provider Family Medicine
DX: E11.9 Type 2 diabetes mellitus without complications (principal)
CPT/HCPCS: 36415; 80053; 80061; 82043; 82570; 83036